=== PATIENT | female | born 1950 | race Caucasian/White ===

== ENCOUNTER 2017-03-21 09:12 | Inpatient (IN) | payer MEDICARE ==
[2017-03-21] VITALS (8 sets, daily range): BP systolic 119–156; BP diastolic 62–90; PULSE 66–79; RESP 12–20; O2SAT 96–99
[~2017-03-21] VITALS: Ht 172.7 cm; Wt 83.0 kg
[~2017-03-21 09:12] MED LIST: CHOL500050 PO; DIPH25CA6 PO; DOCO1CAP3 PO; GLUC1CAP13 PO; LEVO75CA2 PO; LORA10CA PO; Lactated Ringer's 1,000 ML IV ONE; MULT-1018 PO; NAPR220C16 PO; Vancomycin Inj 1,750 MG in 0.9% Sodium Chloride 500 ML IV ONE; turmeric
[2017-03-21] MEDS ORDERED: Vancomycin 1,000mg/200 mL NS IV ONE (10:15)
[2017-03-21] MEDS ORDERED: VITAMIN D PO (10:32)
[2017-03-21] MEDS ORDERED: [UNRECOGNIZED DRUG - OTHER] PO (10:34)
--- NOTE | 2017-03-21 12:58 | PCM.HPANE ---
Patient Data Date of Service: Mar 21, 2017 Surgeon Admitting Provider: Attending Provider:Conor Noland MD Primary Care Physician:Sirena Khan Other Provider:Frandy Dowd Anesthesia Reason for Visit Right Hip Osteoarthritis Ht/WT & BMI Height (Feet): 5 Height (Inches): 8 Weight (Kilograms): 83.9 Body Mass Index 28.00 Allergies Coded Allergies: cetirizine (Verified Allergy, Unknown, 03/14/17) lisinopril (Verified Allergy, Unknown, cough, 03/14/17) Past Anesthesia History Anesthesia History: Denies:: Abnormal Airway, Anesthesia Reactions (spinal- very nauseated), Difficult Intubation, Fam Anesthesia Reaction, Fam Malignant Hypertherm, Malignant Hyperthermia Diabetes History Hx Diabetes?: No MRSA MRSA: No Medications Hypertension Medication: No Home Meds Incl Beta Khurram: No Reported Medications [Phenocane] No Conflict Check2 Tablet PO DAILY 03/21/17 [Vitamin D ] No Conflict Check2,000 Mg PO DAILY 03/21/17 Levothyroxine (Tirosint)75 Mcg [id number] Mcg PO DAILY 03/14/17 Naproxen Sodium 220 Mg Calncdf526 Mg PO BID PRN For Pain Ref 0 03/14/17 Multivitamin (Multi Vitamin Daily)1 Each Tablet1 Each PO DAILY 30 Days Ref 0 03/14/17 Gluc HCl/Csa/Lydia Hy/Hyalur AC (Glucosamine Chondroitin Cap)1 Each Capsule1 Each PO DAILY 03/14/17 Docosahexanoic Acid/Epa (Fish Oil Concentrate Softgel)1 Each Capsule1 Each PO DAILY 03/14/17 Loratadine (Claritin)10 Mg [id number] Mg PO DAILY Ref 0 03/14/17 diphenhydrAMINE HCl (Benadryl)25 Mg Lzinijy70 Mg PO q6-8h PRN allergy sx Ref 0 03/14/17 Discontinued Reported Medications Cholecalciferol (Vitamin D3) (Vitamin D3)50,000 Unit Hbjtmak21,000 Unit PO WEEKLY 03/14/17 [turmeric] No Conflict CheckUnknown Dose DAILY 03/14/17 History History of ENT Problems?: Yes HEENT History: Positive for:: TMJ (grinds, wears nightguard) Denies:: Abnormal Airway Cataracts Difficult Intubation Dysphagia Glaucoma Hearing Problem Sinus Problem Denture Type: None Teeth Condition: Within Normal Limits Other HEENT Pertinent History: dental implants Hx of Heart Problems?: Yes Cardiovascular History: Positive for:: Heart Murmur (diagnosed at age 26- can not 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 heard) Denies:: AICD Edema Hypertension Pacemaker Peripheral Vascular Rheumatic Fever Thrombophlebitis Hx of Respiratory Problem?: No Respiratory History: Denies:: Asthma (occasional) COPD Emphysema Oxygen Administration Pneumonia Tuberculosis Use of C-PAP Machine Use of Inhalers / NEBS Hx Neurologic Problems?: No Neurological History: Denies:: Alzheimer's Disease CVA Dementia Dizziness (remote hx isolated vertigo) Headaches Multiple Sclerosis Parkinson's Disease Seizures TIA Hx of GI Problems?: No Hx of Problems?: No Genitourinary History: Denies:: Kidney Stones Urinary Tract Infection Female Hx: Denies:: Currently Problems with Breasts? Skin History: Denies:: History Skin Disorders? Pressure Ulcers Hx Musculoskeletal Problems?: Yes Musculoskeletal History: Positive for:: Degenerative Joint Musculoskeletal Trauma (right hip current admission problem) Osteoarthritis (hips, knees, back) Denies:: Back Injury Fibromyalgia Myasthenia Gravis Systemic Lupus Hx of Psycho/Social Problems?: No Psycho Social History: Denies:: Anxiety Hx Depression (remote hx ) Hx Surgeries?: Yes (hysterectomy, tonsil) Hx Any Other Health Problems?: Yes Other History: Positive for:: Thyroid Disease (on rx) Denies:: Cancer History Blood Transfusions: Positive for:: Accept Blood Products? Denies:: Blood Transfusions Hx Diabetes: No Hx Alcohol Use: NoHx Substance Use: NoHave You Smoked inLast 12 mo: No (20 years ) Stop/Bang S-Snoring: Do You Snore Loudly: No T-Tired: feel tired, fatigued: No O-Obsered: Observed not breath: No P-Blood Pressure: treated: No B- Body Mass Index > 35 kg/m2: No A- Age over 50: Yes N- Neck Large Circumference: No G- Gender Male: No ROSITA Total Score: 1 ROSITA Risk Assessment: Low Risk, <3 Yes Risk Assessment Category Category 1A: Patient has history of documented sleep apnea, and HAS NOT received any narcotic, sedative or anesthesia administration during this stay. Category 1B: Patient has history of documented sleep apnea, and HAS received any narcotic , sedative or anesthesia administration during this stay Category 2: Patient has SUSPECTED Obstructive Sleep Apnea, and HAS received any narcotic , sedative or anesthesia administration during this stay. Category 3: Patient has SUSPECTED Obstructive Sleep Apnea and HAS NOT received narcotic, sedative or anesthesia administration during this stay. Category 4: Outpatient in Procedural Areas with known sleep apnea or who screen positive for High Risk via the STOP/BANG questionnaire. Exam Exam Vital Signs Vital Signs Date Time Temp Pulse Resp B/P Pulse Ox O2 Delivery O2 Flow Rate FiO2 03/21/17 09:36 36.2 70 16 156/90 97 Room Air General Appearance: Alert, Oriented X3, Cooperative, No Acute Distress HEENT/AIRWAY: MP 1 Lungs: Clear to Auscultation, Normal Air Movement Heart: Exam Unremarkable, Regular Rate/Rhythm, No Murmurs/Rubs/Gallops Meds/Labs/Diagnostics Admission Meds Current Medications Lactated Ringer's (Lr) 1,000 ml @ 120 mls/hr Q8H20M ONCE IV Last administered on 03/21/17 09:26; Start 03/21/17 at 05:00; Stop 03/21/17 at 13:19 Gabapentin (Neurontin) 300 mg PREOP ONCE PO Last administered on 03/21/17 10: 26; Start 03/21/17 at 06:00; Stop 03/21/17 at 06:01; Status DC Celecoxib (CeleBREX) 200 mg PREOP ONCE PO Last administered on 03/21/17 10:26 ; Start 03/21/17 at 06:00; Stop 03/21/17 at 06:01; Status DC Acetaminophen (Tylenol) 975 mg STK-MED ONCE PO Last administered on 03/21/17 10:26; Start 03/21/17 at 10:16; Stop 03/21/17 at 10:17; Status DC Plan Impression Patient chart reviewed, patient interviewed and anesthestic plan with risks, benefits, and alternatives discussed, and informed consent obtained. NPO per Anesth. Guidelines: Yes ASA Physical Status: ASA2 Mod Systemic Disease Anesthetic Plan: SAB Bene/Risks/Altern/Consents: Yes HP Complete Prior to Induction: Yes Dayne Lund MD Mar 21, 2017 12:58
[2017-03-21] MEDS: CeFAZolin 2 Gm/50 mL D5W IV Premix IV ONE ×2 (14:29→14:50)
[2017-03-21] MEDS ORDERED: Tranexamic Acid 100 mg/mL 10 mL Inj ONE ×2 (14:53→15:47)
[2017-03-21] MEDS ORDERED: Bupivacaine-MPF 0.5% W/EPI 30 mL Inj INFILTRATE ONE (15:00)
[2017-03-21] MEDS ORDERED: Gentamicin 40 mg/mL 2 mL Inj IRRIGATION ONE (15:25)
[2017-03-21] MEDS ORDERED: Lactated Ringer's 500 ML IV PRN (15:28)
[2017-03-21] MEDS ORDERED: Lactated Ringer's 1,000 ML IV SCH (15:28)
[2017-03-21] MEDS ORDERED: fentaNYL-PF 50 mCg/mL 2 mL Inj IVPUSH PRN (15:30)
[2017-03-21] MEDS ORDERED: Ondansetron 2 mg/mL 2 mL Inj IVPUSH PRN ×2 (15:30→17:45)
[2017-03-21] MEDS ORDERED: Atropine 0.4 mg/mL Inj IVPUSH PRN (15:30)
[2017-03-21] MEDS ORDERED: hydrOXYzine Inj 50 MG/1 mL SDV IM PRN (15:30)
[2017-03-21] MEDS ORDERED: Phenylephrine 10,000 mCg/mL Inj IVPUSH PRN (15:30)
[2017-03-21] MEDS ORDERED: Dexamethasone 4 mg/mL Inj IVPUSH PRN (15:30)
[2017-03-21] MEDS ORDERED: Labetalol 5 mg/mL 4 mL Inj IV PRN (15:30)
[2017-03-21] MEDS ORDERED: HYDROmorphone 1 mg/mL Inj IVPUSH PRN (15:30)
[2017-03-21] MEDS ORDERED: EPHEDrine Sulfate 50 mg/mL Inj IVPUSH PRN (15:30)
[2017-03-21] MEDS ORDERED: EPHEDrine Sulfate 50 mg/mL Inj IM PRN (15:30)
[2017-03-21] MEDS ORDERED: 0.9% Sodium Chloride 100 ML ONE (15:47)
[2017-03-21] MEDS ORDERED: Lactated Ringer's 1,000 ML IV ONE (16:00)
[2017-03-21 16:38] LABS: APPEARANCE,URINE CLEAR (CLEAR,HAZY); COLOR,URINE YELLOW (YELLOW); OCCULT BLOOD,URINE NEGATIVE (NEGATIVE); PH,URINE 5.5 (5.0-8.0); UROBILINOGEN,URINE NORMAL (NORMAL)
--- NOTE | 2017-03-21 16:56 | DRSVH ---
PROCEDURE: X-RAY PELVIS ONE OR TWO VIEWS (02133) INDICATIONS: POST OP PROSTHETIC TECHNIQUE: 1 view of the lower pelvis acquired. COMPARISON: None. FINDINGS: Bones: Patient is status post right hip arthroplasty, with hardware components in expected positions . The hip joint appears congruent. The visualized bony structures appear intact. Degenerative smith ges of the left hip and sacroiliac joints are not well characterized. Soft tissues: Overlying postoperative changes are noted. No suspicious soft tissue densities. No u nexpected radiopaque foreign bodies are evident. A Baldwin catheter is incidentally noted. IMPRESSION: Expected postoperative changes related to recent right hip arthroplasty. Dictated by: Vince Perez M.D. on 03/21/2017 at 15:48 Approved by: Vince Perez M.D. on 03/21/2017 at 15:54
--- NOTE | 2017-03-21 17:00 | NUR ---
arrived to room 1020 post op R DARON, VSS, pt comfortable, denies nausea, Tordol IV given, ortho signs OK, SCD left leg, pt was able to eat dinner, take fluids no problem. Sig other here, they live on [place]
[2017-03-21] MEDS ORDERED: Glycopyrrolate 0.2 MG/ML 1mL Inj ONE (17:13)
[2017-03-21] MEDS ORDERED: Ondansetron 2 mg/mL 2 mL Inj ONE (17:13)
[2017-03-21] MEDS ORDERED: Propofol 10,000 mCg/mL 20 mL Inj ONE (17:13)
[2017-03-21] MEDS ORDERED: Phenylephrine/NS 100 mCg/mL 10 mL Syringe IVPUSH ONE (17:13)
[2017-03-21] MEDS ORDERED: MetoCLOpramide 5 mg/mL 2 mL Inj ONE (17:13)
[2017-03-21] MEDS ORDERED: fentaNYL-PF 50 mCg/mL 2 mL Inj ONE (17:13)
[2017-03-21] MEDS: Lactated Ringer's 1,000 ML IV SCH (17:43)
[2017-03-21] MEDS ORDERED: MetoCLOpramide 5 mg/mL 2 mL Inj IVPUSH PRN (17:45)
[2017-03-21] MEDS ORDERED: LORazepam 0.5 mg Tablet PO PRN (18:05)
--- NOTE | 2017-03-21 21:51 | PCM.ANEP1 ---
Post Anesthesia PACU Phase 1 Assessment Date of Service: Mar 21, 2017 Vital Signs Vital Signs Date Time Temp Pulse Resp B/P Pulse Ox O2 Delivery O2 Flow Rate FiO2 03/21/17 20:09 36.6 73 17 119/73 98 Room Air 03/21/17 17:38 36.5 77 20 129/86 96 Room Air 03/21/17 16:53 15 98 03/21/17 16:52 36.0 78 14 125/62 98 Room Air 03/21/17 16:40 79 12 121/73 99 Room Air 03/21/17 16:34 36.0 78 16 127/76 99 Room Air Anesthetic Administered: SAB Level of Alertness: Awake, talking MORA's with Equal Strength: Yes Pain: No Pain Scale Score: 2 Nausea or Vomiting: No CV Function & Hydration Stable: Yes Airway Device: none Oxygen Delivery: Room Air Lungs: Clear to Auscultation, Normal Air Movement Dermatome Level: Full Sensation PACU Phase 2 Assessment Complications: No Follow up Care: No Patient Instructions Provided: Yes Dayne Lund MD Mar 21, 2017 21:51
--- NOTE | 2017-03-21 22:27 | OP ---
[address] [address] OPERATIVE REPORT PATIENT: SARAH HE : 1950 MR#: [id number] ADMIT: 03/21/2017 JOB ID: [id number] DATE OF SURGERY: 03/21/2017 PREOPERATIVE DIAGNOSIS(ES): Severe arthritis, right hip. POSTOPERATIVE DIAGNOSIS(ES): Severe arthritis, right hip. PROCEDURE: Right total hip replacement. SURGEON: Conor Noland MD. GAS PLANT WORKER: Rita Paulino PA-C. Multimedia Artist required due to the complexity of the operation. INDICATIONS: This patient has had severe and progressive osteoarthritis of the hip unresponsive to conservative treatment with progressive disability. She elects for total hip replacement. She understands and accepts the potential for risks and complications which include, but is not limited to, infection, thromboembolic, neurovascular events, as well as implant failure, leg length inequality and dislocation. PROCEDURE: The patient was prepped and draped in usual sterile fashion. A posterolateral approach was made to the hip. Dissection was carried down. The external rotators were tagged and released. Capsule was T'd, tagged, and released. Hip was dislocated in standard fashion. A femoral neck cut was made. Acetabulum was cleared of soft tissues progressively reamed to a 53 a 54 outer bearing shell. Was impacted into place and excellent stability was encountered. Excellent position of the cup was confirmed. Box osteotome and straight T-handle reamer used on the femur with progressive broaching to a 12. Trial reductions and a -3 neck length produced excellent alignment, stability and soft tissue tension. Wounds irrigated with sterile irrigant and the final implant was impacted down with repeat trial reductions with similar findings. A -3 neck length was chosen with a dual mobility head, then reduced with excellent stability noted. Wounds lavaged with dilute Betadine solution per protocol, which was irrigated free. Deep fascia closed with #2 Quill deep, followed by a 2-0 Vicryl, 3-0, and a 4-0 intracuticular stitch. Steri-Strips were applied. Sterile dressing applied. Standard postoperative plan. Patient returned to the recovery room in stable condition.
[2017-03-21] MEDS: Sodium Chloride LOK Flush 10 mL Syringe IV SCH (23:39)
[2017-03-22] MEDS: oxyCODONE-Acetamin 5-325 mg Tablet PO PRN ×4 (02:13→22:13)
[2017-03-22] MEDS: hydrOXYzine Pamoate 25 mg Capsule PO PRN ×5 (02:13→22:12)
[2017-03-22] MEDS: Lactated Ringer's 1,000 ML IV SCH (03:10)
--- NOTE | 2017-03-22 03:38 | NUR ---
Pain/activity Pt reporting hip pain at start of shift at 1/10 and had been taking scheduled Tordal with good relief. Pt had nausea in the middle of the night and took 5mg of IV Reglan. Pain also increased to 5/10 at this time. Once nausea subsided, pt took 1 tab of Percocet and 25 mg PO Vistaril. On reassessment, pt sleeping and appears comfortable. IVF LR at 60 ml/hr. Baldwin patent and draining clear urine. Right hip bulky dressing is CDI. Ice applied to site. Pt able to turn with kindergarten assistant but has not been OOB yet. Full sensation and orthos intact. SCDs are on.
[2017-03-22 05:01] VITALS: BP 101/63; PULSE 62; RESP 16; O2SAT 95
[2017-03-22 06:44] LABS: BASOPHILS % (AUTO) 0.2 % (0-3); EOSINOPHILS % (AUTO) 0.2 % (0-5); MONOCYTES % (AUTO) 6.2 % (4-12); Mean Corpuscular Hemoglobin 30.8 pg (27.0-35.0); Mean Corpuscular Volume 88.8 fL (81-100); NEUTROPHILS % (AUTO) 87.1 % (40-74); Platelet Count 261 bil/L (150-400)
[2017-03-22] MEDS: Sodium Chloride LOK Flush 10 mL Syringe IV SCH ×2 (08:30→16:30)
[2017-03-22] MEDS: CeFAZolin 2 Gm/50 mL D5W IV Premix IV SCH ×2 (08:45→17:42)
--- NOTE | 2017-03-22 08:46 | PCM.PNORTH ---
Subjective Date of Service: Mar 22, 2017 Visit Information: Reason for Visit Right Hip Osteoarthritis Surgery/Surgery Date R DARON 03-21-17 Post-Op Day # 1 Date of Admission: Mar 21, 2017 at 17:12 Hospital Day # Subjective Patient states she is feeling well today. She states she had a bout of nausea and pain throughout the evening however it is subsided by now. She states her pain is well controlled Pain Management: PO Objective Exam Objective Patient sitting up in bed Vital Signs and I/O Vital Sign - Last Date Time Temp Pulse Resp B/P Pulse Ox O2 Delivery O2 Flow Rate FiO2 03/22/17 05:01 36.8 62 16 101/63 95 Room Air Intake and Output 03/21/17 03/21/17 03/22/17 Cumulative From/Thru 15:00 23:00 07:00 03/14/17 09:19 - 03/22/17 06:21 Intake Total 1050 ml 1095 ml 300 ml 2445 ml Output Total 200 ml 800 ml 1000 ml Balance 1050 ml 895 ml -500 ml 1445 ml Intake Oral 400 ml 300 ml 700 ml IV Total 1050 ml 695 ml 1745 ml Output Urine Total 200 ml 800 ml 1000 ml Lab & Micro Results Laboratory Tests Test 03/21/17 15:53 03/22/17 05:35 Urine Color Yellow (YELLOW) Urine Appearance Clear (CLEAR,HAZY) Urine pH 5.5 (5.0-8.0) Urine Specific [place] 1.015 (1.003-1.035) Urine Protein Negativemg/dL (NEG,TRACE) Urine Glucose (UA) Negativemg/dL (NEGATIVE) Urine Ketones Negativemg/dL (NEGATIVE) Urine Occult Blood Negative (NEGATIVE) Urine Nitrite Negative (NEGATIVE) Urine Bilirubin Negative (NEGATIVE) Urine Urobilinogen Normalmg/dL (NORMAL) Urine Leukocyte Esterase Negative (NEGATIVE) Urine RBC 0-2/hpf (0-2) Urine WBC 0-5/hpf (0-5) Urine Epithelial Cells Occasional/hpf (NONE-MOD) Urine Crystals None seen (NONE SEEN) Urine Bacteria None/hpf (NONE-FEW) Urine Hyaline Casts None/lpf (NONE) Urine Granular Casts None seen (NONE SEEN) Urine Waxy Casts None seen (NONE SEEN) Urine Red Blood Cell Casts None seen (NONE SEEN) Urine White Blood Cell Casts None seen (NONE SEEN) Urine Mucus None seen (None Seen) Urine Trichomonas None seen (NONE SEEN) Urine Yeast None (NONE SEEN) Urinalysis Comment None Urine Culture Reflexed Not indicated White Blood Count 11.1th/mm3 (3.8-10.1) Red Blood Count 3.83mil/mm3 (3.90-5.20) Hemoglobin 11.8g/dL (12.0-15.6) Hematocrit 34.0% (35.0-46.0) Mean Corpuscular Volume 88.8fL (81-100) Mean Corpuscular Hemoglobin 30.8pg (27.0-35.0) Mean Corpuscular Hemoglobin Concent 34.7% (32.0-37.0) Red Cell Distribution Width 12.6% (12.3-15.4) Platelet Count 261bil/L (150-400) Neutrophils (%) (Auto) 87.1% (40-74) Lymphocytes (%) (Auto) 6.1% (14-46) Monocytes (%) (Auto) 6.2% (4-12) Eosinophils (%) (Auto) 0.2% (0-5) Basophils (%) (Auto) 0.2% (0-3) Result Diagram: 03/22/17 0535 General Appearance: Alert, Oriented X3, Cooperative, No Acute Distress Extremities: Distal Pulses Palpable, No Compartment Syndrom Noted, Thigh & Calf Soft/Nontender Postop Sensory Motor: Distal Motor Intact, Movement in Toes, Distal Sensation Intact, NVI Distally SURGICAL WOUND : Wound Location/Description Perioperative dressing clean dry and intact Incision General Appearance: No Direct Observation Activity: Ambulate with PT (WBAT c FWW) Catheters: Urethral 2 Way Baldwin (D/c POD#1 ) Assessment & Plan Impression POD#1 right total hip arthroplasty Problems: Plan Weightbearing: Weightbearing as tolerated with a front wheeled walker DVT prophylaxis: Aspirin 81 mg twice a day 6 weeks Physical therapy for transfers, progressive ambulation, strengthening Utilize POSTERIOR hip precautions Wound care: Perioperative dressing will be changed to a island dressing tomorrow. Apply NIRMALA compressions stockings. Analgesia: Continue oral analgesia. Discharge plan: Discharge home in 1-2 days. Follow-up plan: In 2 weeks at [facility] with YOSEF for wound check and at [address] Noland with x-rays Rita Paulino PA-C Mar 22, 2017 08:46
[2017-03-22 12:00] VITALS: BP 115/66; PULSE 72; RESP 17; O2SAT 97
--- NOTE | 2017-03-22 13:08 | NUR ---
Evaluation completed. Please go to "Notes" then click on "Assessments and Notes" (bottom left corner of screen). Then select appropriate discipline tab on top of screen.
--- NOTE | 2017-03-22 17:05 | NUR ---
Pain/Bed Patient reported 2/10 hip pain this shift. 1 tab Percocet and 25mg of Vistaril prior to PT. Denied nausea this shift. Patient bed was not working properly, bed replaced with working bed. Patient repositions self for comfort. Call light and tray table within reach. Will continue to monitor patient hourly.
--- NOTE | 2017-03-22 17:08 | NUR ---
[employer] Boarding Pass Yaw boarding pass signed and faxed for 5:10pm on 03/22/2017 from [place] to [place].
[2017-03-22 20:35] VITALS: BP 121/72; PULSE 78; RESP 16; O2SAT 97
[2017-03-23] MEDS: Sodium Chloride LOK Flush 10 mL Syringe IV SCH ×2 (00:52→08:30)
[2017-03-23] MEDS: hydrOXYzine Pamoate 25 mg Capsule PO PRN ×3 (02:05→10:08)
[2017-03-23] MEDS: oxyCODONE-Acetamin 5-325 mg Tablet PO PRN ×4 (02:05→13:02)
[2017-03-23] MEDS: Lactated Ringer's 1,000 ML IV SCH (03:03)
--- NOTE | 2017-03-23 03:49 | NUR ---
Pain/activity Pt reporting pain at 2/10 and has been taking 1 tab of Percocet and Vistaril. This has been effective for pain control per pt. Pt has been up to BR SBA and FWW, tolerating activity well. Right hip dressing is CDI and ice applied. Orthos intact, SCDs are on.
[2017-03-23 06:10] VITALS: BP 135/85; PULSE 72; RESP 16; O2SAT 97
--- NOTE | 2017-03-23 07:55 | PCM.PNORTH ---
Subjective Date of Service: Mar 23, 2017 Visit Information: Reason for Visit Right Hip Osteoarthritis Surgery/Surgery Date R DARON 03-21-17 Post-Op Day # 2 Date of Admission: Mar 21, 2017 at 17:12 Hospital Day # Subjective Patient did very well with PT yesterday and is anxious to go home. They would like to get the 4:45 ferry to [place]. Patient is independent with transfers and is able to get to the bathroom by herself. Postop General: No Shortness of Breath, No Chest Pain, Good Appetite Pain Management: PO Objective Exam Objective Patient is seen standing at bedside with a walker. She is independent with transfers. Vital Signs and I/O Vital Sign - Last Date Time Temp Pulse Resp B/P Pulse Ox O2 Delivery O2 Flow Rate FiO2 03/23/17 06:10 36.7 72 16 135/85 97 Room Air Intake and Output 03/22/17 03/22/17 03/23/17 Cumulative From/Thru 15:00 23:00 07:00 03/14/17 09:19 - 03/23/17 00:42 Intake Total 2610 ml 225 ml 5280 ml Output Total 1650 ml 2650 ml Balance 960 ml 225 ml 2630 ml Intake Oral 1200 ml 1900 ml IV Total 1410 ml 225 ml 3380 ml Output Urine Total 1650 ml 2650 ml Result Diagram: 03/22/17 0535 General Appearance: Alert, Oriented X3, Cooperative, No Acute Distress Extremities: Distal Pulses Palpable, No Compartment Syndrom Noted, Thigh & Calf Soft/Nontender Postop Sensory Motor: Distal Motor Intact, Distal Sensation Intact, NVI Distally SURGICAL WOUND : Wound Location/Description Right hip: Surgical dressing is removed. There is minimal serous drainage on the dressing. There is no erythema present. Steri-Strips are intact. The wound is cleansed with hydrogen peroxide. A new dressing is applied - Silverlon and Island dressing Activity: Ambulate with PT (WBAT c FWW) Catheters: None Assessment & Plan Impression POD #2 status post right total hip arthroplasty Problems: Plan Weightbearing: Weightbearing as tolerated with walker DVT prophylaxis: Lovenox 40 mg subcutaneous 2 weeks followed by aspirin 81 mg twice a day 4 weeks Physical therapy for transfers, progressive ambulation, therapeutic exercise Wound care: Dressing change today to Island dressing by PA Nursing to apply thigh high compression stockings prior to discharge. Patient brought them with her. Discharge plan: Discharge home today. Start outpatient physical therapy next week Discharge instructions are reviewed with the patient Follow-up plan: In 2 weeks at [facility] with YOSEF for wound check and at [address] Noland with x-rays Pain Management: Percocet, Vistaril, oxycodone VTE Prophylaxis: Sub-Q Enoxaparin, SCDs Resuscitation Status: CPR: Attempt Resuscitation [place] PA-C Mar 23, 2017 07:54
--- NOTE | 2017-03-23 07:57 | PCM.DIORTH ---
Ortho Discharge Instruction Date of Service: Mar 23, 2017 Dates of Hospitalization Date of Hospital Admission Mar 21, 2017 at 17:12 Providers Admitting Physician: Conor Noland MD Primary Care Physician: Sirena Khan Attending Physician: Conor Noland MD Diet Discharge Diet: No restrictions Activity Discharge Activity-General: Be up and about, Balance rest and activity, Elevate & ice extremity, Ice incision 3-5 time/day for 20min, May drive in (4 weeks) Right Lower Extremity: Weight Bearing as tolerated Discharge Assist Device: Front Wheeled Walker Dressing and Incisional Care Discharge Dressing Care: Keep dressing clean, dry & intact, Change soiled dressing (every 2 days or as needed) Discharge Hygiene: May shower (with wound covered with plastic for 2 weeks) Additional Instructions Discharge Instructions Weightbearing: Weightbearing as tolerated with walker DVT prophylaxis: Lovenox 40 mg subcutaneous 2 weeks followed by aspirin 81 mg twice a day 4 weeks Wound care: Dressing change every 2 days Wear thigh-high compression stockings on surgical leg for 4 weeks, and on left leg for 2 weeks. Activity: Increase her walking a little more each day. Every afternoon laid down for 1-2 hours with legs elevated higher than the heart to help decrease swelling Start outpatient physical therapy next week Follow Up Plan Follow Up Plan Follow-up plan: In 2 weeks at [facility] with YOSEF for wound check and at [address] Noland with x-rays Call your provider for: Fever, Chills, Shortness of breath, Vomitting, Drainage at incision, Wound redness (that is spreading), Increasing pain (for no reason) Lucero Mensah PA-C Mar 23, 2017 07:57
--- NOTE | 2017-03-23 08:33 | PCM.DC.ORT ---
Discharge Summary Date of Service: Mar 23, 2017 Date of Hospital Admission: Mar 21, 2017 at 17:12 Date of Surgery: Mar 21, 2017 Date of Discharge: Mar 23, 2017 Reason for Hospitalization: Right hip arthritis Procedures Performed: Right total hip arthroplasty Hospital Course: The patient was admitted to the hospital on 03/21/2017 and underwent the above procedure. Antibiotic prophylaxis consisting of Ancef and vancomycin. The surgeon was Dr. Noland. A Baldwin was placed perioperatively. Patient tolerated the procedure well and was transferred to recovery room in stable condition. Baldwin was discontinued on postop day 1. Patient had physical therapy to work on ambulation and transfers. Weightbearing as tolerated with walker. Pain was managed with Dilaudid, Percocet, Vistaril, Toradol. DVT prophylaxis: Haix, SCDs Patient progressed well with physical therapy and on POD-3 was discharged home. Follow-up: at [facility] 2 weeks postop for wound check and at [address] Noland with x-ray Diagnosis at Time of Discharge Status post right total hip arthroplasty Problems: Disposition: Discharged home in stable condition with her spouse to assist in her care Discharge Instructions: Activity Discharge Activity-General: Be up and about, Balance rest and activity, Elevate & ice extremity, Ice incision 3-5 time/day for 20min, May drive in (4 weeks) Right Lower Extremity: Weight Bearing as tolerated Discharge Assist Device: Front Wheeled Walker Dressing and Incisional Care Discharge Dressing Care: Keep dressing clean, dry & intact, Change soiled dressing (every 2 days or as needed) Discharge Hygiene: May shower (with wound covered with plastic for 2 weeks) Additional Instructions Discharge Instructions Weightbearing: Weightbearing as tolerated with walker DVT prophylaxis: Lovenox 40 mg subcutaneous 2 weeks followed by aspirin 81 mg twice a day 4 weeks Wound care: Dressing change every 2 days Wear thigh-high compression stockings on surgical leg for 4 weeks, and on left leg for 2 weeks. Activity: Increase her walking a little more each day. Do not take aspirin or anti-inflammatories during that time you are on Lovenox Every afternoon laid down for 1-2 hours with legs elevated higher than the heart to help decrease swelling Start outpatient physical therapy next week ([Vitamin D ]) 2,000 MG PO DAILY Docosahexanoic Acid/Epa (Fish Oil Concentrate Softgel) 1 Each Capsule 1 EACH PO DAILY Enoxaparin Sodium (Enoxaparin Sodium) 40 Mg/0.4 Ml Syringe 40 MG SUBQ Q24H Gluc HCl/Csa/Lydia Hy/Hyalur AC (Glucosamine Chondroitin Cap) 1 Each Capsule 1 EACH PO DAILY Hydroxyzine Pamoate (HydrOXYzine Pamoate) 25 Mg Capsule 25 MG PO Q6H PRN PRN For Spasm and/or Restlessness Levothyroxine (Tirosint) 75 Mcg Capsule 75 MCG PO DAILY Loratadine (Claritin) 10 Mg Capsule 10 MG PO DAILY Multivitamin (Multi Vitamin Daily) 1 Each Tablet 1 EACH PO DAILY diphenhydrAMINE HCl (Benadryl) 25 Mg Capsule 25 MG PO q6-8h PRN PRN allergy sx oxyCODONE-Acetaminophen 5-325 mg (oxyCODONE-Acetaminophen 5-325 mg) 1 Each Tablet 1-2 TAB PO Q4H PRN PRN FOR SEVERE PAIN Max 8 per day Lucero Mensah PA-C Mar 23, 2017 08:33
[2017-03-23] MEDS ORDERED: OXYC1TAB24 PO (08:36)
[2017-03-23] MEDS ORDERED: ENOX40DI8 SUBQ (08:36)
[2017-03-23] MEDS ORDERED: HYDR-3797 PO (08:36)
[2017-03-23] MEDS ORDERED: Polyethylene Glycol (PEG) 17 Gm Powder PO PRN (10:45)
--- NOTE | 2017-03-23 13:23 | NUR ---
Discharge Pt DC'ing home to [place] via private vehicle with . Pain has been well controlled with percocet and Vistaril. Pt given her Percocet at 3 hour riddhi for transport home and potential wait for the ferry. Pharmacy confirmed all of her prescriptions were instock to resume. administered Lovenox injection safely and correctly. Belongings taken with pt.
== END 2017-03-23 13:10 | disposition home or self-care (01) | DRG 470 ==
LOC: SAS 09:12 → OSC 17:12
PROVIDERS: ADMIT Orthopaedic Surgery; ATTEND Orthopaedic Surgery
PROC: 0SR90JA Replacement of Right Hip Joint with Synthetic Substitute, Uncemented, Open Approach (ICD-10-PCS; principal; 2017-03-21 13:15)
DX: M16.11 Unilateral primary osteoarthritis, right hip (principal); E07.9 Disorder of thyroid, unspecified; F32.9 Major depressive disorder, single episode, unspecified